=== PATIENT | female | born 1985 | race Caucasian/White ===

== ENCOUNTER 2016-12-09 19:34 | Emergency (ER) | payer SELFPAY ==
[~2016-12-09] VITALS: Ht 154.9 cm; Wt 49.0 kg
[2016-12-09] MEDS ORDERED: ASPIRIN CHEWABLE 81 MG TABLET. PO ONE (20:15)
[2016-12-09] MEDS ORDERED: MORPHINE SULFATE 2 MG/ML DISP.SYRIN. IV PRN (20:15)
--- NOTE | 2016-12-09 20:19 | PHYS DOC ---
Past Medical History Past Medical History: Anxiety, Depression Additional Past Medical Histor: PTSD Past Surgical History: Hysterectomy, Tonsillectomy, Tubal ligation Additional Past Surgical Histo: WISDOM TEETH Alcohol Use: Occasionally Drug Use: None Adult General Chief Complaint Chief Complaint: CHEST PAIN HPI HPI 31-year-old female presenting to the emergency department today with chest pain this started approximately 30 minutes prior to arrival. She describes it as a sharp pain in her right chest that radiates to her right upper neck. She has a history of smoking. She denies a history of diabetes high cholesterol hypertension hypertension. She denies unilateral leg swelling hemoptysis recent surgery or immobilization. She denies personal or family history of blood clotting disorders. She denies it being sudden in onset and she denies it being tearing ripping pain. It is not migrating. Review of systems is negative for abdominal pain nausea vomiting diaphoresis. All other review of systems is negative unless otherwise noted in history of present illness. Review of Systems Review of Systems SEE ABOVE. Current Medications Current Medications Current Medications Medications (Trade) Dose Ordered Sig/Benjamin Start Time Stop Time Status Last Admin Dose Admin Aspirin (Children'S Aspirin) 324 mg 1X ONCE 12/09/16 20:15 12/09/16 20:18 DC 12/09/16 20:36 324 MG Fentanyl Citrate (Fentanyl 2ml Vial) 100 mcg STK-MED ONCE 12/09/16 21:30 12/09/16 21:31 DC Morphine Sulfate 2 mg PRN Q1HR PRN 12/09/16 20:15 12/09/16 20:57 2 MG Nitroglycerin (Nitrostat) 0.4 mg PRN Q5MIN PRN 12/09/16 20:15 12/09/16 20:53 0.4 MG Allergies Allergies Allergies Coded Allergies Type Severity Reaction Last Updated Verified fluconazole Allergy Intermediate 12/09/16 No lithium Allergy Intermediate 12/09/16 No lurasidone Allergy Intermediate 12/09/16 No naproxen Allergy Intermediate 12/09/16 No tramadol Allergy Intermediate 12/09/16 No venlafaxine Allergy Intermediate 12/09/16 No Physical Exam Physical Exam Constitutional: Well developed, well nourished, no acute distress, non-toxic appearance. HENT: Normocephalic, atraumatic, bilateral external ears normal, oropharynx moist, no oral exudates, nose normal. Eyes: PERRLA, EOMI, conjunctiva normal, no discharge. [] Neck: Normal range of motion, no tenderness, supple, no stridor. Cardiovascular:Heart rate regular rhythm, no murmur [] Lungs & Thorax: Bilateral breath sounds clear to auscultation Abdomen: Bowel sounds normal, soft, no tenderness, no masses, no pulsatile masses. [] Skin: Warm, dry, no erythema, no rash. Back: No tenderness, no CVA tenderness. [] Extremities: No tenderness, no cyanosis, no clubbing, ROM intact, no edema. Neurologic: Alert and oriented X 3, normal motor function, normal sensory function, no focal deficits noted. [] Psychologic: Affect normal, judgement normal, mood normal. [] Current Patient Data Vital Signs Vital Signs Date Time Temp Pulse Resp B/P Pulse Ox O2 Delivery O2 Flow Rate FiO2 12/09/16 20:57 22 98 Room Air 12/09/16 20:53 55 99/55 12/09/16 19:55 98.4 98.4 Lab Values Laboratory Tests Test 12/09/16 19:50 12/09/16 21:37 White Blood Count 12.9x10^3/uL (4.0-11.0) H Red Blood Count 4.71x10^6/uL (3.50-5.40) Hemoglobin 13.8g/dL (12.0-15.5) Hematocrit 41.8% (36.0-47.0) Mean Corpuscular Volume 89fL (79-100) Mean Corpuscular Hemoglobin 29pg (25-35) Mean Corpuscular Hemoglobin Concent 33g/dL (31-37) Red Cell Distribution Width 13.6% (11.5-14.5) Platelet Count 180x10^3/uL (140-400) Neutrophils (%) (Auto) 60% (31-73) Lymphocytes (%) (Auto) 31% (24-48) Monocytes (%) (Auto) 6% (0-9) Eosinophils (%) (Auto) 2% (0-3) Basophils (%) (Auto) 0% (0-3) Neutrophils # (Auto) 7.8x10^3uL (1.8-7.7) H Lymphocytes # (Auto) 4.0x10^3/uL (1.0-4.8) Monocytes # (Auto) 0.8x10^3/uL (0.0-1.1) Eosinophils # (Auto) 0.3x10^3/uL (0.0-0.7) Basophils # (Auto) 0.0x10^3/uL (0.0-0.2) Sodium Level 142mmol/L (136-145) Potassium Level 3.6mmol/L (3.5-5.1) Chloride Level 106mmol/L (98-107) Carbon Dioxide Level 29mmol/L (21-32) Anion Gap 7 (6-14) Blood Urea Nitrogen 11mg/dL (7-20) Creatinine 0.8mg/dL (0.6-1.0) Estimated GFR (Cockcroft-Gault) 83.7 Glucose Level 87mg/dL (70-99) Calcium Level 9.1mg/dL (8.5-10.1) Total Bilirubin 0.2mg/dL (0.2-1.0) Direct Bilirubin 0.1mg/dL (0.0-0.2) Aspartate Amino Transferase (AST) 14U/L (15-37) L Alanine Aminotransferase (ALT) 23U/L (14-59) Alkaline Phosphatase 65U/L (46-116) Troponin I Quantitative < 0.017ng/mL (0.000-0.055) < 0.017ng/mL (0.000-0.055) SP-Mdq-N-Type Natriuretic Peptide 158pg/mL (0-124) H Total Protein 6.9g/dL (6.4-8.2) Albumin 3.8g/dL (3.4-5.0) Lipase 155U/L (73-393) Laboratory Tests 12/09/16 19:50 Laboratory Tests 12/09/16 19:50 EKG EKG EKG shows sinus rhythm with regular rate. Normal intervals. Normal axis. ST segments are congruent. Not suggestive of ACS. Reviewed by myself. Radiology/Procedures Radiology/Procedures [] Course & Med Decision Making Course & Med Decision Making Pertinent Labs and Imaging studies reviewed. (See chart for details) [] 31-year-old female presenting to the emergency department today with chest pain. Vital signs unremarkable. Pertinent physical exam findings showed normal physical exam. Blood work obtained which was unremarkable. Chest x-ray unremarkable. She was subsequently discharged home to follow up with PCP over the next 2-3 days. Dragon Disclaimer Dragon Disclaimer This electronic medical record was generated, in whole or in part, using a voice recognition dictation system. Departure Departure Impression: Primary Impression: Chest pain Disposition: HOME, SELF-CARE Condition: STABLE Referrals: DOMINIQUE MCINTOSH MD Patient Instructions: Chest Pain (Nonspecific) Additional Instructions: Thank you for allowing us to participate in your care today. Followup with your primary care physician in 3 days if your symptoms do not improve. If you do not have a primary care provider you can ask for a list of our primary care providers. Return to the emergency department you have any new or concerning findings. This should be evaluated by the primary care physician and any necessary consulting services for continued management within a few days after discharge. Return to emergency room if you have any new or concerning symptoms including but not limited to fever, chills, nausea, vomiting, intractable pain, any new rashes, chest pain, shortness of air, uncontrolled bleeding, difficulty breathing, and/or vision loss. Problem Qualifiers Primary Impression: Chest pain Chest pain type: unspecified Qualified Code: R07.9 - Chest pain, unspecified RAVEN LAGUNAS MD Dec 09, 2016 20:19
[2016-12-09 20:26] LABS: BASO % 0 % (0-3); EOS % 2 % (0-3); HEMATOCRIT 41.8 % (36.0-47.0); HEMOGLOBIN 13.8 g/dL (12.0-15.5); LYMPH % 31 % (24-48); MEAN CORPUSCULAR HEMOGLOBIN 29 pg (25-35); MEAN CORPUSCULAR HGB CONC 33 g/dL (31-37); MEAN CORPUSCULAR VOLUME 89 fL (79-100); MONO % 6 % (0-9); NEUT % 60 % (31-73); PLATELET COUNT 180 x10^3/uL (140-400); RED BLOOD COUNT 4.71 x10^6/uL (3.50-5.40); RED CELL DISTRIBUTION WIDTH 13.6 % (11.5-14.5); WHITE BLOOD COUNT 12.9 x10^3/uL (4.0-11.0)
[2016-12-09 20:31] LABS: CALCIUM 9.1 mg/dL (8.5-10.1); CREATININE 0.8 mg/dL (0.6-1.0); GFR 83.7; POTASSIUM 3.6 mmol/L (3.5-5.1)
[2016-12-09 20:37] LABS: ALBUMIN 3.8 g/dL (3.4-5.0); DIRECT BILIRUBIN 0.1 mg/dL (0.0-0.2); TOTAL BILIRUBIN 0.2 mg/dL (0.2-1.0); TOTAL PROTEIN 6.9 g/dL (6.4-8.2)
[2016-12-09] MEDS: NITROGLYCERIN SUBLINGUAL 0.4 MG BOTTLE OF 25. SL PRN ×2 (20:37→20:53)
[2016-12-09] MEDS ORDERED: FENTANYL PF 100 MCG/2 ML VIAL. ONE (21:30)
[2016-12-09] MEDS ORDERED: FENTANYL PF 100 MCG/2 ML VIAL. IV PRN ×2 (22:15)
[2016-12-09 22:32] VITALS: BP 109/82
--- NOTE | 2016-12-10 06:13 | EKG ---
[facility] [address] [place] [address] Test Date: 2016-12-09 Test Time: 19:43:30 Pat Name: ZANE BINGHAM Department: Room: Gender: F [employer]: : 1985 Requested By: RAVEN LAGUNAS Order Number: [id number] Reading MD: Measurements Intervals [place] Rate: 58 P: 57 PA: 154 QRS: 78 QRSD: 76 T: 54 QT: 400 QTc: 396 Interpretive Statements SINUS RHYTHM INCOMPLETE RIGHT BUNDLE BRANCH BLOCK NO SPECIFIC ECG ABNORMALITIES RI6.01 No previous ECG available for comparison
--- NOTE | 2016-12-10 09:17 | RAD ---
PA and lateral chest radiographs 12/09/2016 Clinical history: Right-sided chest pain radiating up neck. PA and lateral digital radiographs of the chest were obtained. No previous studies are available for comparison. The cardiac and mediastinal silhouettes are within normal limits in size and configuration. A 8 mm nodular opacity is seen overlying the left midlung on the PA view which is not well visualized on the lateral radiograph. This may represent the nipple shadow. No acute pulmonary infiltrate is seen. No pleural effusion or pneumothorax is noted. The osseous structures are grossly intact. Impression: No acute abnormality is seen.
== END 2016-12-09 22:47 | disposition home or self-care (01) ==
LOC: ER 19:34
DX: R07.89 Other chest pain (principal); F32.9 Major depressive disorder, single episode, unspecified; F43.10 Post-traumatic stress disorder, unspecified; F41.9 Anxiety disorder, unspecified; Z88.6 Allergy status to analgesic agent; Z88.1 Allergy status to other antibiotic agents; Z88.5 Allergy status to narcotic agent; Z88.8 Allergy status to other drugs, medicaments and biological substances; Z87.891 Personal history of nicotine dependence
CPT/HCPCS: 36415; 71020; 80048; 80076; 83690; 83880; 84484; 85027; 93005; 96374; 96375; 99285; J2270; J3010